=== PATIENT | female | born 1945 | race Caucasian/White ===

== ENCOUNTER 2024-04-30 09:32 | Outpatient (REF) | payer MEDICARE, BC, SELFPAY ==
[2024-04-30 13:33] LABS: Basophils Absolute Auto 0.1 X10*3/uL (0.0-0.2); Basophils Percent Auto 0.3 % (0-2); Eosinophils Absolute Auto 0.1 X10*3/uL (0.0-0.4); Eosinophils Percent Auto 0.3 % (0-4); Hematocrit 40.9 % (37.0-47.0); Hemoglobin 13.4 g/dl (12.0-16.0); Imm Gran Abs Auto 0.07 X10*3/uL (0.00-0.03); Imm Gran Pct Auto 0.5 % (0.0-0.4); Lymphocytes Percent Auto 62.2 % (20-40); MANUAL DIFF FLAG SCAN; Mean Corpuscular HGB Conc 32.8 g/dl (31.0-35.0); Mean Corpuscular Hemoglobin 29.4 pg (27.0-33.0); Mean Corpuscular Volume 89.7 fL (80.0-98.0); Monocytes Absolute Auto 0.8 X10*3/uL (0.1-1.2); Monocytes Percent Auto 5.8 % (2-11); Neutrophils Absolute Auto 4.5 x10*3/uL (2.0-8.3); Neutrophils Percent Auto 30.9 % (45-73); Platelet Count 169 X10*3/uL (160-400); Red Blood Count 4.56 X10*6/uL (4.20-5.50); SCAN SMEAR FLAG 1; White Blood Count 14.4 X10*3/uL (4.8-10.8)
[2024-04-30 13:38] LABS: Alanine Aminotransferase 29 U/L (0-31); Aspartate Amino Transferase 25 U/L (5-31); C Reactive Protein 0.26 mg/dL (< or = 0.50); Estimated Glomerular Filt Rate 46; Uric Acid 7.9 mg/dL (2.4-5.7)
[2024-04-30 14:01] LABS: HBsAGNum1 0.55 S/CO (0.00-0.99); Hepatitis B Surface Antigen Negative (Negative); ~HepC Num1 0.07 S/CO (0.00-0.79); ~Hepatitis B Surface Antibody NONREACTIVE (Nonreactive); ~Hepatitis C Antibody Nonreactive (Nonreactive)
[2024-04-30 14:29] LABS: Erythrocyte Sedimentation Rate 10 MM/HR (0-20)
[2024-04-30 14:39] LABS: SLIDE REVIEW VERIFIED
[2024-05-01 08:41] LABS: HBc Num1 0.07 S/CO (0.00-0.79); Hepatitis B Core Antibody Nonreactive (Nonreactive)
[2024-05-03 10:44] LABS: TS Negative Control Passed; TS Panel A 0; TS Panel B 0; TS Positive Control Passed; TSpotTB Negative (Negative)
== END 2024-04-30 09:33 | disposition home or self-care (01) ==
LOC: HO.HMGCLDS 09:32
PROVIDERS: PCP Physician Assistant; Visit Provider Internal Medicine Rheumatology
DX: M10.9 Gout, unspecified (principal); M19.90 Unspecified osteoarthritis, unspecified site; M20.11 Hallux valgus (acquired), right foot; M20.12 Hallux valgus (acquired), left foot; M25.562 Pain in left knee; G89.29 Other chronic pain
CPT/HCPCS: 36415; 82565; 84450; 84460; 84550; 85025; 85652; 86140; 86481; 86704; 86706; 86803; 87340; 99212

== ENCOUNTER 2024-04-30 09:32 | Outpatient (AMB) | payer MEDICARE, BC, SELFPAY ==
--- NOTE | 2024-04-30 09:47 | MHC.OFFVIS ---
Vital Signs 04/30/24 10:00 Height 5 ft 2 in Weight 157 lb 3.033 oz BMI 28.7 BP 130/60 Blood Pressure Location Lt brachial Position Sitting Respiration 16 Pulse 76 Pulse Source Pulse Oximeter Pulse Oximetry (%) 96 Oxygen Delivery Method Room Air Intake Visit Reasons: Gout Intake Note: Patient presents for Gout. No Gout flare up Allergies Morphine Allergy (Mild, Uncoded 04/30/24 09:52) Vomiting Paxlovid Allergy (Mild, Uncoded 04/30/24 09:52) Diarrhea Medication List - Last Reconciled 04/30/24 by Daniel Enriquez MD acetaminophen (Tylenol Extra Strength) 1,000 mg PO Q6H PRN apixaban (Eliquis) 5 mg PO BID azelastine 2 sprays intranasal ONCE PRN bimatoprost 0.01% (Lumigan) 1 drp ophthalmic (eye) QPM biotin 2,500 mcg PO BID diltiazem HCl ER 240 mg PO DAILY ibrutinib (Imbruvica) 280 mg PO DAILY menthol 4% (Biofreeze (menthol)) 1 appl topical ONCE PRN hzlyhswh-ckplxdg-oelh-lutein tabs PO DAILY prednisone 5 mg PO DIRECTED valsartan 80 mg PO DAILY HPI HPI Gout: Details: She received prednisone course at December visit for treatment of podagra with benefit. She experienced no joint pain or swelling until February. She has had recurrence of hand pain with shooting pain from right thumb radiating to wrists. She is unable to utilize her hands. Unable to make a fist. She has stiffness that is lasting throughout the day. She also experiences pain in her left knee. She has history of meniscus repair in her left knee. No recurrence of podagra. [facility] Family History (Updated 04/30/24 @ 10:00 by BRONSON Fleming) Father CLL (chronic lymphocytic leukemia) Mother CHF (congestive heart failure) Social History (Updated 04/30/24 @ 09:59 by BRONSON Fleming) Household Members: Spouse Housing: House Alcohol intake: current Comment: [facility] Patient Tobacco Use Status: Former Tobacco user Years Smoked: 10 Review of Systems Const All systems reviewed & are unremarkable except as noted in HPI and below Physical Exam Vital Signs: Last Vital Signs Pulse 76 04/30/24 10:00 Resp 16 04/30/24 10:00 BP 130/60 04/30/24 10:00 Pulse Ox 96 04/30/24 10:00 Oxygen Delivery Method Room Air 04/30/24 10:00 BMI result Body Mass Index 28.7 Const Other: General: Comfortable CVS: RRR Respiratory: clear to auscultation bilaterally. Good respiratory effort Skin: No lesions seen MSK: Tender right 1st and 2nd MCP with synovitis present on 2nd MCP. Tender right PIP knees. No wrist tenderness. Tender left 2nd PIP with synovitis present. Synovitis present left 2nd PIP. Unable to tierce filler hands. Shoulder abduction 120 degrees. Good internal external rotation. Left knee synovitis present with tenderness on palpation along joint line. Knee flexion 120 degrees. Bilateral hallux valgus present with tenderness on palpation. No tenderness of the rest of the MTPs. 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 Differential diagnosis includes chronic gout, CPPD disease, seronegative inflammatory arthritis such as spondyloarthropathy (RF/CCP/VETO/ESR/CRP negative 09/2023 [facility] records). Code(s): M19.90 - Unspecified osteoarthritis, unspecified site Category: Medical Plan: I prescribed course of prednisone. Labs ordered. Return to clinic in 1 month (2) Gout: Comment: History of recurrent podagra with an episode in December treated with prednisone course. She had 3 episodes last year. I will obtain uric acid level this visit. Code(s): M10.9 - Gout, unspecified Category: Medical Qualifiers: Chronicity: chronic Gout etiology: idiopathic Gout site: toe Presence of tophus: without tophus Plan: Labs ordered Return to clinic in 1 month (3) Hallux valgus, acquired, bilateral: Comment: Bilateral. We discussed diagnosis, natural course and management. 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 (4) Knee pain, left: Comment: I am concerned she has degenerative osteoarthritis contributing to left knee pain and swelling. Concurrent inflammatory arthritis can also be contributing. Code(s): M25.562 - Pain in left knee Category: Medical Qualifiers: Chronicity: chronic Qualified Code(s): M25.562 - Pain in left knee; G89.29 - Other chronic pain Plan: I prescribed short course of prednisone We will obtain left knee x-ray next visit Return to clinic in 1 month Orders: Orders Alanine Aminotransferase 04/30/24 M10.9 - Gout, unspecified Aspartate Amino Transferase 04/30/24 M10.9 - Gout, unspecified C Reactive Protein 04/30/24 M10.9 - Gout, unspecified Complete Blood Count Auto Diff 04/30/24 M10.9 - Gout, unspecified T Spot TB 04/30/24 M10.9 - Gout, unspecified Hepatitis B,C Profile 04/30/24 M10.9 - Gout, unspecified Erythrocyte Sedimentation Rate 04/30/24 M10.9 - Gout, unspecified Creatinine 04/30/24 M10.9 - Gout, unspecified Uric Acid 04/30/24 M10.9 - Gout, unspecified Medications: New prednisone Take 3 tablets daily 3 days, 2 tablets daily 3 days, 1 tablet daily 3 days 5 mg PO DIRECTED 18 tabs 0RF Coding Level of Care Code Est Pt Level 4 (80750) Complex EM visit Add On G2211 Diagnoses Inflammatory arthritis M19.90 Gout M10.9 Chronicity: chronic Gout etiology: idiopathic Gout site: toe Presence of tophus: without tophus Hallux valgus, acquired, bilateral M20.11; M20.12 Chronic pain of left knee M25.562; G89.29 Chronicity: chronic
[2024-04-30 10:00] VITALS: BP 130/60; PULSE 76; RESP 16; O2SAT 96; BMI 28.7
== END 2024-04-30 10:35 | disposition home or self-care (01) ==
PROVIDERS: PCP Physician Assistant; Visit Provider Internal Medicine Rheumatology
DX: M19.90 Unspecified osteoarthritis, unspecified site (principal); M10.9 Gout, unspecified; M20.11 Hallux valgus (acquired), right foot; M20.12 Hallux valgus (acquired), left foot; M25.562 Pain in left knee; G89.29 Other chronic pain
CPT/HCPCS: 99214; G2211

== ENCOUNTER 2024-06-05 08:34 | Outpatient (AMB) | payer MEDICARE, BC, SELFPAY ==
--- NOTE | 2024-06-05 08:49 | MHC.OFFVIS ---
Vital Signs 06/05/24 08:51 Height 5 ft 2 in Weight 158 lb 8.198 oz BMI 29.0 BP 120/68 Blood Pressure Location Lt brachial Position Sitting Pulse 64 Pulse Source Pulse Oximeter Pulse Oximetry (%) 97 Oxygen Delivery Method Room Air Intake Visit Reasons: Follow up 1mo Intake Note: Patient presents for follow up on gout and lab review. Allergies Morphine Allergy (Mild, Uncoded 06/05/24 08:52) Vomiting Paxlovid Allergy (Mild, Uncoded 06/05/24 08:52) Diarrhea HPI HPI Follow up 1mo: Details: She continues to have pain and swelling in her hands. She has shooting pain from bilateral 2nd MCPs towards palm of her hand. She feels weak. [facility] Family History (Updated 04/30/24 @ 10:00 by BRONSON Fleming) Father CLL (chronic lymphocytic leukemia) Mother CHF (congestive heart failure) Social History (Updated 04/30/24 @ 09:59 by BRONSON Fleming) Household Members: Spouse Housing: House Alcohol intake: current Comment: OCC Patient Tobacco Use Status: Former Tobacco user Years Smoked: 10 Review of Systems Const All systems reviewed & are unremarkable except as noted in HPI and below Physical Exam Vital Signs: Last Vital Signs Pulse 64 06/05/24 08:51 BP 120/68 06/05/24 08:51 Pulse Ox 97 06/05/24 08:51 Oxygen Delivery Method Room Air 06/05/24 08:51 BMI result Body Mass Index 29.0 Const Other: General: Comfortable CVS: RRR Respiratory: clear to auscultation bilaterally. Good respiratory effort Skin: No lesions seen MSK: No tenderness of MCPs. No synovitis of MCPs (improvement). No wrist tenderness. Tender left 2nd PIP with synovitis present. Tender right 3rd to 5th PIPs. 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 Full range of motion of shoulders. Good internal external rotation. Left knee mild synovitis present with tenderness on palpation along joint line. Knee flexion 120 degrees. Bilateral hallux valgus present. No tenderness of the rest of the MTPs. No podagra. Assessment & Plan Assessment & Plan (1) Inflammatory arthritis: Comment: She has developed chronic inflammatory arthritis with history recurrent podagra likely related to chronic gout. She has hyperuricemia. She has had partial response with low-dose prednisone course. I discussed treatment with another course of prednisone with higher dose and longer taper and uric lowering therapy. We also discussed the need for colchicine as prophylaxis initially with goal of uric acid level being less than 6. Patient would like to think about starting a new medication allopurinol and colchicine. Code(s): M19.90 - Unspecified osteoarthritis, unspecified site Category: Medical Plan: I prescribed course of prednisone. Information on allopurinol and colchicine given to patient Return to clinic in 3 month (2) Gout: Comment: History of recurrent podagra with an episode in December treated with prednisone course. She had 3 episodes last year. History of hyperuricemia Code(s): M10.9 - Gout, unspecified Category: Medical Qualifiers: Gout site: toe Gout etiology: idiopathic Chronicity: chronic Presence of tophus: without tophus Laterality: unspecified laterality Qualified Code(s): M1A.0790 - Idiopathic chronic gout, unspecified ankle and foot, without tophus (tophi) Plan: See above Return to clinic in 3 months (3) Knee pain, left: Comment: Synovitis has improved with prednisone course. Likely related to inflammatory arthritis. Code(s): M25.562 - Pain in left knee Category: Medical Qualifiers: Chronicity: chronic Qualified Code(s): M25.562 - Pain in left knee; G89.29 - Other chronic pain Plan: I prescribed another course of prednisone We will obtain left knee x-ray next visit if she has persistent knee pain and swelling Return to clinic in 3 months Medications: Changed From prednisone Take 3 tablets daily 3 days, 2 tablets daily 3 days, 1 tablet daily 3 days 5 mg PO DIRECTED 18 tabs 0RF To prednisone Take 4 tablets daily 5 days, 3 tablets daily 5 days, 2 tablets daily 5 days, 1 tablet daily 5 days. Take prednisone with food. 5 mg PO DIRECTED 50 tabs 0RF Coding Level of Care Code Est Pt Level 4 (22407) Complex EM visit Add On G2211 Diagnoses Inflammatory arthritis M19.90 Chronic idiopathic gout involving toe without tophus, unspecified laterality M1A.0790 Gout site: toe Gout etiology: idiopathic Chronicity: chronic Presence of tophus: without tophus Laterality: unspecified laterality Chronic pain of left knee M25.562; G89.29 Chronicity: chronic
[2024-06-05 08:51] VITALS: BP 120/68; PULSE 64; O2SAT 97; BMI 29.0
== END 2024-06-05 09:39 | disposition home or self-care (01) ==
PROVIDERS: PCP Physician Assistant; Visit Provider Internal Medicine Rheumatology
DX: M19.90 Unspecified osteoarthritis, unspecified site (principal); M1A.0790 Idiopathic chronic gout, unspecified ankle and foot, without tophus (tophi); M25.562 Pain in left knee; G89.29 Other chronic pain
CPT/HCPCS: 99214; G2211

== ENCOUNTER → 2024-06-05 08:34 | Outpatient (BNVA) | payer MEDICARE, BC, SELFPAY | PROVIDERS: PCP Physician Assistant; Visit Provider Internal Medicine Rheumatology | DX: M19.90 Unspecified osteoarthritis, unspecified site (principal); M25.562 Pain in left knee; M1A.0790 Idiopathic chronic gout, unspecified ankle and foot, without tophus (tophi); G89.29 Other chronic pain | CPT/HCPCS: 99212 ==

== ENCOUNTER 2024-09-11 13:43 | Outpatient (AMB) | payer MEDICARE, BC, SELFPAY ==
--- NOTE | 2024-09-11 13:49 | A.OFFVIS_ITS ---
Vital Signs 09/11/24 13:51 Height 5 ft 1 in Weight 154 lb 1.65 oz BMI 29.1 BP 146/70 H Blood Pressure Location Rt brachial Position Sitting Pulse 63 Pulse Source Pulse Oximeter Pulse Oximetry (%) 97 Oxygen Delivery Method Room Air Intake Visit Reasons: Follow Up 3mo Intake Note: Patient present for follow up on vasculitis. Accompanied by: Self / Same As Patient Allergies Morphine Allergy (Mild, Uncoded 06/05/24 08:52) Vomiting Paxlovid Allergy (Mild, Uncoded 06/05/24 08:52) Diarrhea HPI HPI Follow Up 3mo: Details: She was dx with recurrent breast cancer R nipple s/p surgery 04/2025. She had gout attack L podagra August. She went to urgent care who prescribed a prednisone course with resolution of symptoms PFSH Family History Father CLL (chronic lymphocytic leukemia) Mother CHF (congestive heart failure) Social History Household Members: Spouse Housing: House Alcohol intake: current Comment: OCC Patient Tobacco Use Status: Former Tobacco user Years Smoked: 10 Review of Systems Const All systems reviewed & are unremarkable except as noted in HPI and below Physical Exam Vital Signs: Last Vital Signs Pulse 63 09/11/24 13:51 BP 146/70 H 09/11/24 13:51 Pulse Ox 97 09/11/24 13:51 Oxygen Delivery Method Room Air 09/11/24 13:51 BMI result Body Mass Index 29.1 Const Other: General: Comfortable CVS: RRR Respiratory: clear to auscultation bilaterally. Good respiratory effort Skin: No lesions seen MSK: No tenderness of MCPs, PIPs, DIPJ knees and wrists. 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 Full range of motion of shoulders. Good internal external rotation. No tenderness of knees. Knee flexion 120 degrees. Bilateral hallux valgus present. No tenderness of the rest of the MTPs. No podagra. Assessment & Plan Assessment & Plan (1) Gout: Comment: She had another episode of left podagra treated with prednisone course by urgent care in [place]. We discussed next steps with uric lowering therapy. Medical Technologist Prn Dr. Chilel told patient that there is a contraindication to colchicine use with ibrutinib for CLL treatment. Contraindication to NSAID use for prophylaxis due to concurrent use of Eliquis. If she has recurrent gout flare, I will treat with prednisone course then have her continue low-dose prednisone for prophylaxis while she is on uric lowering therapy with allopurinol. Patient agrees with plan. Uric acid goal less than 6. Rheumatoid history: Recurrent podagra with an episode in December treated with prednisone course. She had 3 episodes last year. History of hyperuricemia. Code(s): M10.9 - Gout, unspecified Category: Medical Qualifiers: Chronicity: chronic Gout etiology: idiopathic Gout site: toe Laterality: unspecified laterality Presence of tophus: without tophus Qualified Code(s): M1A.0790 - Idiopathic chronic gout, unspecified ankle and foot, without tophus (tophi) Plan: Labs prior to starting allopurinol ordered. After lab results are back and are okay, I will start allopurinol 100 mg daily She will check uric acid level 1 month after starting allopurinol Return to clinic in 3 months (2) Hyperuricemia: Code(s): E79.0 - Hyperuricemia without signs of inflammatory arthritis and tophaceous disease Category: Medical Plan: See above Orders: Orders Aspartate Amino Transferase Today M1A.0790 - Idiopathic chronic gout, unspecified ankle and foot, without tophus (tophi) Creatinine Today M1A.0790 - Idiopathic chronic gout, unspecified ankle and navid t, without tophus (tophi) Uric Acid 1 Month M1A.0790 - Idiopathic chronic gout, unspecified ankle and foot, without tophus (tophi) Alanine Aminotransferase Today M1A.0790 - Idiopathic chronic gout, unspecified ankle and foot, without tophus (tophi) Erythrocyte Sedimentation Rate Today Z79.899 - Other fdc (current) drug therapy C Reactive Protein Today Z79.899 - Other equipment operator intermodal yard (current) drug therapy Uric Acid Today M1A.0790 - Idiopathic chronic gout, unspecified ankle and foot, without tophus (tophi) Coding Level of Care Code Est Pt Level 4 (30513) Complex EM visit Add On G2211 Diagnoses Chronic idiopathic gout involving toe without tophus, unspecified laterality M1A.0790 Chronicity: chronic Gout etiology: idiopathic Gout site: toe Laterality: unspecified laterality Presence of tophus: without tophus Hyperuricemia E79.0
[2024-09-11 13:51] VITALS: BP 146/70; PULSE 63; O2SAT 97; BMI 29.1
--- OUTSIDE RECORDS SUMMARY | 2024-09-11 16:35 | XMS_ITS | Patient Health Record ---
Author Organization [facility] Address [address], [place] [id number] Care Team Providers Care Waistline Joiner Name Role Phone Lani Waddell Unavailable [phone] Allergies No Known Allergies Reason For Referral No Information Medications Medication SIG (Take, Route, Frequency, Duration) Notes Start Date End Date Status Simbrinza 1-0.2 % INSTILL 1 DROP INTO BOTH EYES TWICE DAILY Ophthalmic for 90 Days Active Eliquis 5 MG TAKE 1 TABLET TWICE A DAY Oral for 90 Days Active Azelastine HCl 0.1 % USE 2 SPRAYS IN EAC H NOSTRIL TWICE DAILY Nasal for 75 Days Active Lumigan 0.01 % Ophthalmic for 90 Days Active dilTIAZem HCl ER Coated Beads 240 MG Oral for 90 Days Active Valsartan 80 MG Oral for 90 Days Active Imbruvica 280 MG Oral for 28 Days Active Problems Problem Type SNOMED Code ICD Code Onset Dates Problem Status W/U Status Risk Notes Problem Gouty arthritis (19457501) Gouty arthritis (M10.9) Active confirmed Vital Signs Heart Rate 75 /min 08/10/2024 Temperature 98.1 degrees Fahrenheit 08/10/2024 Respiratory Rate 16 /min 08/10/2024 Oximetry 97 % 08/10/2024 Blood pressure diastolic 70 mm Hg 08/10/2024 Weight-kg 71.03 kg 08/10/2024 Height 61 in 08/10/2024 Blood pressure systolic 130 mm Hg 08/10/2024 Weight 156.6 lbs 08/10/2024 BMI 29.59 kg/m2 08/10/2024 Encounters Encounter Location Date Provider Diagnosis [facility], [facility] [address] [place], [place] [id number] 08/10/2024 Lani Waddell Gouty arthritis M10.9 and Foot pain, left M79.672 Assessments Encounter Date Diagnosis (ICD Code) Assessment Notes Treatment Notes Treatment Clinical Notes Section Notes 08/10/2024 Foot pain, left (ICD-10 - M79.672) 08/10/2024 Gouty arthritis (ICD-10 - M10.9) Gout is a form of arthritis caused by a buildup of uric acid crystals in a joint. It causes sudden attacks of pain, swelling, redness, and stiffness, usually in one joint, especially the big toe. Gout usually comes on without a cause. But it can be brought on by drinking alcohol (especially beer), eating or drinking things made with high-fructose corn syrup, or eating seafood or red meat. Taking certain medicines, such as diuretics, can also trigger an attack of gout. Taking your medicines as prescribed and following up with your doctor regularly can help you avoid gout attacks in the future. Follow-up care is a arechiga part of your treatment and safety. Be sure to make and go to all appointments, and call your doctor if you are having problems. It's also a good idea to know your test results and keep a list of the medicines you take. How can you care for yourself at home? If the joint is swollen, put ice or a cold pack on the area for 10 to 20 minutes at a time. Put a thin cloth between the ice and your skin. Prop up the sore limb on a pillow when you ice it or anytime you sit or lie down during the next 3 days. Try to keep it above the level of your heart. This can help reduce swelling. Rest sore joints. Avoid activities that put weight or strain on the joints for a few days. Take short rest breaks from your regular activities during the day. Take your medicines exactly as prescribed. Call your doctor if you think you are having a problem with your medicine. Take pain medicines exactly as directed. If the doctor gave you a prescription medicine for pain, take it as prescribed. If you are not taking a prescription pain medicine, ask your doctor if you can take an [id number] medicine. Eat less seafood and red meat. Avoid foods or drinks that are made with high-fructose corn syrup. Check with your doctor before drinking alcohol. Losing weight, if you are overweight, may help reduce attacks of gout. But do not go on a diet that causes rapid weight loss. Losing a lot of weight in a short amount of time can cause a gout attack. When should you call for help? Call your doctor now or seek immediate medical care if: You have a fever. The joint is so painful you cannot use it. You have sudden, unexplained swelling, redness, warmth, or severe pain in one or more joints. Watch closely for changes in your health, and be sure to contact your doctor if: You have joint pain. Your symptoms get worse or are not improving after 2 or 3 days. Plan Of Treatment No Information Insurance Providers Payer Name Payer Address Payer Phone Subscriber Number Group Number Insured Name Patient Relationship to Insured Coverage Start Date Coverage End Date Medicare [address] [address] [place] [address] [id number] OCTOBER, DIAN Self - patient is the insured [facility] Commercial [address] [place] [address] [id number] OCTOBER, DIAN Self - patient is the insured Medical (General) History Medical History History ICD Code Gout
--- OUTSIDE RECORDS SUMMARY | 2024-09-11 16:35 | XMS_ITS ---
Author Organization [facility] Address [address] [place] [id number] Care Team Providers Care Chart Clerk Name Role Phone Lani Waddell Unavailable [phone] Allergies No Known Allergies REASON FOR VISIT POSS GOUT ON FOOT Medications Medication SIG (Take, Route, Frequency, Duration) Notes Start Date End Date Status predniSONE 10 MG Take 4 tablets days 1-2, 3 tablets days 3-4, two tablets days 5-6 one tablet days 7-8 Orally Once a day in the morning with food for 8 days 08/10/2024 08/18/2024 Active Azelastine HCl 0.1 % USE 2 SPRAYS IN EAC H NOSTRIL TWICE DAILY Nasal for 75 Days Active Lumigan 0.01 % Ophthalmic for 90 Days Active dilTIAZem HCl ER Coated Beads 240 MG Oral for 90 Days Active Imbruvica 280 MG Oral for 28 Days Active Simbrinza 1-0.2 % INSTILL 1 DROP INTO BOTH EYES TWICE DAILY Ophthalmic for 90 Days Active Eliquis 5 MG TAKE 1 TABLET TWICE A DAY Oral for 90 Days Active Valsartan 80 MG Oral for 90 Days Active Problems Problem Type SNOMED Code ICD Code Onset Dates Problem Status W/U Status Risk Notes Problem Gouty arthritis (20875486) Gouty arthritis (M10.9) Active confirmed Vital Signs Blood pressure systolic 130 mm Hg 08/11/19 25 Blood pressure diastolic 70 mm Hg 025 Heart Rate 75 /min 08/10/2024 Oximetry 97 % 08/10/2024 Temperature 98.1 degrees Fahrenheit 08/11/19 25 Height 61 in 08/10/2024 Weight 156.6 lbs 08/10/2024 BMI 29.59 kg/m2 08/10/2024 Respiratory Rate 16 /min 08/10/2024 Weight-kg 71.03 kg 08/10/2024 Encounters Encounter Location Date Provider Diagnosis [facility], [facility] [address] [place], [place] [phone] 08/10/2024 Lani Waddell Gouty arthritis M10.9 and Foot pain, left M79.672 Assessments Encounter Date Diagnosis (ICD Code) Assessment Notes Treatment Notes Treatment Clinical Notes Section Notes 08/10/2024 Gouty arthritis (ICD-10 - M10.9) Gout [...] your doctor if you can take an rsre-uft-mjiwuvo medicine. Eat less seafood and red meat. [...] not improving after 2 or 3 days. 08/10/2024 Foot pain, left (ICD-10 - M79.672) Plan Of Treatment Medication Medication Name Sig Start Date Stop Date Notes predniSONE 10 MG Take 4 tablets days 1-2, 3 tablets days 3-4, two tablets days 5-6 one tablet days 7-8 Orally Once a day in the morning with food for 8 days 08/10/2024 08/18/2024 Treatment Notes Assessment Notes Gouty arthritis Gout is a form of arthritis caused [...] your doctor if you can take an sdpt-sct-mliepqi medicine. Eat less seafood and red meat. [...] not improving after 2 or 3 days. Next Appt Details Follow Up: ironn, Reason: Progress Notes * PAULINE YORKADOB:1945 (79 yo F)Acc No.[id number]:08/10/2024 Progress Note Patient:DIAN PISANO Provider:?Lani Waddell APRN :1945???Age:79 Y???Sex:Female D ate:08/10/2024 Address:[address] [place], [place] [address], [id number] Subjective: * Chief Complaints: * ???1. POSS GOUT ON FOOT. * HPI: ???History of Present Illness:? patient state left foot and toes with pain and swelling and redness with warmth, radiates to the ankle, was walking a lot at [place], hx of gout and feels as though she is having a flair up, pain with ambulation. * ROS:?All Other Systems:?Review of Systems (ROS)?See HPI for details,All others negative except those mentioned in HPI.? * Medical History:?Gout. * Medications:?Taking Imbruvic a 280 MG Tablet Oral , Taking dilTIAZem HCl ER Coated Beads 240 MG Capsule Extended Release 24 Hour Oral , Taking Lumigan 0.01 % Solution Ophthalmic , Taking Valsartan 80 MG Tablet Oral , Taking Eliquis 5 MG Tablet TAKE 1 TABLET TWICE A DAY Oral , Taking Simbrinza 1-0.2 % Suspension INSTILL 1 DROP INTO BOTH EYES TWICE DAILY Ophthalmic , Taking Azelastine HCl 0.1 % Solution USE 2 SPRAYS IN EACH NOSTRIL TWICE DAILY Nasal * Allergies:?N.K.D.A. Objective: * Vitals:?Staff: EMIGDIO, BP: 130/7 0 mm Hg, HR: 75 /min, Oxygen sat %: 97 %, Temp: 98.1 F, Ht: 61 in, Wt: 156.6 lbs, BMI: 29.59 Index, RR: 16 /min, Wt-k.03 kg. * Examination: ???General Examination: ?GENERAL APPEARANCE?pleasant, well nourished, in no acute distress.?EYES?extraocular movement intact (EOMI).?SKIN?warm and dry, no rashes.?MUSCULOSKELETAL:?left foot swelling at 1st -3rd toes and dorsal aspect of foot as well as left medial ankle,? warmth and pain with palpation and ROM,.?NEUROLOGIC:?alert and oriented, cognitive exam grossly normal, cooperative with exam.?PSYCH:?cooperative with exam, cognitive function intact, good eye contact, judgement and insight good.? Assessment: * Assessment: 1.?Gouty arthritis - M10.9 ( Primary)???2.?Foot pain, left - M79.672??? Plan: * Treatment: * Follow Up:?prn * * Sign off status: Completed true * Provider:?Lani Waddell APRN Date:?02/2025 Generated for Zander beck/Madison/Amaris on:?09/11/2024 04:34 PM EDT History and Physical Notes * HPI (History of Present Illness) Category Sub-Category Detail Notes Category Not es History of Present Illness patient state left f oot and toes with pain and swelling and redness with warmth, radiates to the ankle, was walking a lot at [place], hx of gout and feels as though she is having a flair up, pain with ambulation Examination Category Sub-Category Detail Notes Category Not es General Examination GENERAL APPEARANCE pleasant, well nourished, in no acute distress EYES extraocular movement intact (EOMI) NEUROLOGIC: alert and oriented, cognitive exam grossly normal, cooperative with exam SKIN warm and dry, no terrance hes MUSCULOSKELETAL: left foot swelling a t 1st -3rd toes and dorsal aspect of foot as well as left medial ankle, warmth and pain with palpation and ROM, PSYCH: cooperative with exa m, cognitive function intact, good eye contact, judgement and insight good
== END 2024-09-11 14:31 | disposition home or self-care (01) ==
LOC: HO.RHES 13:44
PROVIDERS: PCP Physician Assistant; Visit Provider Internal Medicine Rheumatology
DX: M1A.0790 Idiopathic chronic gout, unspecified ankle and foot, without tophus (tophi) (principal); E79.0 Hyperuricemia without signs of inflammatory arthritis and tophaceous disease
CPT/HCPCS: 99214; G2211

== ENCOUNTER 2024-09-11 13:43 | Outpatient (REF) | payer MEDICARE, BC, SELFPAY ==
[2024-09-11 18:07] LABS: Alanine Aminotransferase 53 U/L (0-31); Aspartate Amino Transferase 25 U/L (5-31); C Reactive Protein 0.19 mg/dL (< or = 0.50); Estimated Glomerular Filt Rate 46; Uric Acid 7.7 mg/dL (2.4-5.7)
[2024-09-11 18:48] LABS: Erythrocyte Sedimentation Rate 9 MM/HR (0-20)
== END 2024-09-11 13:44 | disposition home or self-care (01) ==
LOC: HO.HKASLDS 13:43
PROVIDERS: PCP Physician Assistant; Visit Provider Internal Medicine Rheumatology
DX: M1A.0790 Idiopathic chronic gout, unspecified ankle and foot, without tophus (tophi) (principal); Z79.899 Other long term (current) drug therapy
CPT/HCPCS: 36415; 82565; 84450; 84460; 84550; 85652; 86140; 99212

== ENCOUNTER 2025-05-07 11:53 | Outpatient (REF) | payer MEDICARE, BC, SELFPAY ==
--- OUTSIDE RECORDS SUMMARY | 2025-05-07 16:01 | XMS_ITS ---
Author Name [facility] Organization Unknown Encounters Encounter Type Encounter Reason Primary Diagnosis Location Date Ambulatory [facility] 11/14/2024 Ambulatory [facility] 11/14/2024
--- OUTSIDE RECORDS SUMMARY | 2025-05-07 16:01 | XMS_ITS | Clinical Summary ---
Author Organization [facility] Address [address] [place] [address] Phone Care Team Providers Care Fork Lift Technician Name Role Phone Hu Peterson Primary Care Provider [phone] Allergies Active Allergy Reactions Criticality Noted Date Comments Morphine 02/13/2025 Medications allopurinoL (ZYLOPRIM) 100 mg tablet Take 1 tablet (100 mg total) by mouth 1 (one) time each day. 11/21/19 25 Active amLODIPine-atorv astatin (CADUET) 2.5-10 mg per tablet Take 1 tablet by mouth 1 (one) time each day. Active Eliquis 5 mg tablet TAKE 1 TABLET DAILY (CORRECT DOSE PER DOCTOR) 11/28/19 25 Active betamethasone dipropionate 0.05 % lotion APPLY TO SCALP TWICE DAILY NEEDED FLARES DECREASE SYMPTOMS IMPROVE 09/25/19 25 Active Lumigan 0.01 % ophthalmic drops Administer 1 drop into both eyes. at bedtime Active Simbrinza 1-0.2 % ophthalmic suspension Administer 1 drop into both eyes 2 (two) times a day. 03/18/20 24 Active dilTIAZem CD (CARDIZEM CD) 240 mg 24 hr capsule 02/11/20 25 Active fluocinolone and shower cap 0.01 % oil 11/05/19 25 Active Imbruvica 280 mg tablet Take by mouth 1 (one) time each day Active methylPREDNISolo ne (MEDROL DOSPAK) 4 mg tablet See administration instructions. 11/20/19 25 Active sulfamethoxazole -trimethoprim (BACTRIM DS,SEPTRA DS) 800-160 mg per tablet Take 1 tablet by mouth 2 (two) times a day. for 10 days Active tamoxifen (NOLVADEX) 20 mg chemo tablet Take 1 tablet (20 mg total) by mouth 1 (one) time each day 09/12/19 Active triamterene-hydr oCHLOROthiazide (MAXZIDE-25) 37.5-25 mg per tablet Take 1 tablet by mouth 1 (one) time each day. Active valsartan (DIOVAN) 80 mg tablet Take 1 tablet (80 mg total) by mouth 1 (one) time each day. 11/27/19 Active Active Problems Problem Noted Date Diagnosed Date Arthritis of both hands 02/24/2025 Encounters Date Type Department Care Team Description 04/14/2025 11:00 AM EST Treatment [facility] Occupational Therapy [address] [place] [phone] Ashley Luong OT Arthritis of both hands (Primary Dx) 04/01/2025 1:15 PM EDT Treatment [facility] Occupational [address] [phone] Ashley Luong OT Arthritis of both hands (Primary Dx) 03/18/2025 10:30 AM EDT Treatment [facility] Occupational [address] [phone] Ashley Luong OT Arthritis of both hands (Primary Dx) 02/24/2025 9:30 AM EDT Evaluation [facility] Occupational Therapy [address] [place] [phone] Ashley Luong OT Arthritis of both hands 02/24/2025 Plan of Care Documentation [facility] Occupational Therapy [address] [place] [phone] 02/13/2025 9:30 AM EDT Office Visit Orthopedic Surgery [address] [place] [phone] Lexie Carlson PA Arthritis of both hands (Primary Dx); Bilateral hand pain; Trigger thumb of left hand from Last 3 Months Surgical History Surgery Date Site/Laterality Comments APPENDECTOMY PROCEDURE: NM APPENDECTOMY HYSTERECTOMY PROCEDURE: HISTORICAL HYSTERECTOMY OOPHORECTOMY 1988 PROCEDURE: HISTORICAL OOPHORECTOMY CHOLECYSTECTOMY 1989 PROCEDURE: NM CHOLECYSTECTOMY Medical History Medical History Date Comments CLL (chronic lymphocytic vanita kemia) ([facility] V24, [facility] V28) DX:CLL (chronic lymphocytic leukemia) ([facility]) Hyperlipidemia DX:Hyperlipidemi a Social History Tobacco Use Types Packs/Day Years Used Date Smoking Tobacco: Never Assessed Comments Unknown Sex and Gender Information Value Date Recorded Sex Assigned at Not on file Legal Sex Female 11:49 PM EST Gender Identity Not on file Sexual Orientation Not on file Obstetrics History Plan of Treatment Health Maintenance Due Date Last Done Comments DTaP,Tdap,and Td Vaccines (1 - Tdap) 1964 Pneumococcal Vaccine: 50+ Years (1 of 2 - PCV) 1964 Zoster Vaccines (1 of 2) 1964 RSV Immunization Adult Patients (1 - 1-dose 75+ series) 2020 Cholesterol Screening (Lipid Panel) 05/07/2022 Falls Risk Assessment 05/07/2022 Medicare Annual Wellness Visit 05/07/2022 Osteoporosis Screening (Bone Density Screening) 05/07/2022 Social Influencers of Health Screening 05/07/2022 Depression Screening 06/04/2024 COVID-19 Vaccine ( season) 2025 05/01/2021, 07/24/2020, 07/03/2020 Influenza Vaccine (#1) 2025 , 03/03/2023, 03/30/2022, Additional history exists Hypertension/CHF/CAD Annual BMP Blood Test 03/18/2025 HIB Vaccines Aged Out No longer eligi ble based on patient's age to complete this topic HPV Vaccines Aged Out No longer eligi ble based on patient's age to complete this topic Hepatitis A Vaccines Aged Out No long er eligible based on patient's age to complete this topic Hepatitis B Vaccines Aged Out No long er eligible based on patient's age to complete this topic IPV Vaccines Aged Out No longer eligi ble based on patient's age to complete this topic MMR Vaccines Aged Out No longer eligi ble based on patient's age to complete this topic Meningococcal ACWY Vaccine Aged Out N o longer eligible based on patient's age to complete this topic Meningococcal B Vaccine Aged Out No l onger eligible based on patient's age to complete this topic RSV Immunization Patients Under 20 months Aged Out No longer eligible based on patient's age to complete this topic Varicella Vaccines Aged Out No longer eligible based on patient's age to complete this topic Procedures Procedure Name Priority Date/Time Associated Diagnosis Comments XR HAND 3+ VIEWS BILAT Routine 02/13/2025 9:49 AM EDT Pain from Last 3 Months Results * XR Hand 3+ Views bilat (02/13/2025 9:49 AM EDT) Anatomical Region Laterality Modality Upper Extremities, Hand Bilateral Computed Radiography Narrative 02/13/2025 10:03 AM EDT Date of Visit: 02/13/2025 Reason for visit: Bilateral hand pain Views: AP, lateral, oblique bilateral hands Comparison: None Findings: Moderate bilateral thumb basal joint arthritis. Diffuse periarticular osteopenia and diffuse moderate to severe arthritic changes at PIP and DIP joints of all fingers. No fracture dislocation or lytic lesions. Impression: Diffuse osteoarthritis bilateral hands us Lexie BERGERON IMG XR PROCEDURES Final Resul t from Last 3 Months Insurance MEDICARE [facility] Care Teams Fork Lift Technician Relationship Specialty Start Date End Date Hu Peterson PA [address] [place] [phone] PCP - General Internal Medicine 01/08/25
--- OUTSIDE RECORDS SUMMARY | 2025-05-07 16:01 | XMS_ITS | Patient Health Record ---
Author Organization [facility] Address [address] [place], [place] [phone] Care Team Providers Care Civil Cad Tech Name Role Phone Lani Waddell Unavailable [phone] Allergies No Known Allergies Reason For Referral No Information Medications Medication SIG (Take, Route, Frequency, Duration) Notes Start Date End Date Status Simbrinza 1-0.2 % Suspension INSTILL 1 DROP INTO BOTH EYES TWICE DAILY Ophthalmic; Duration: 90 Days Active Eliquis 5 MG Tablet TAKE 1 TABLET TWICE A DAY Oral; Duration: 90 Days Active Azelastine HCl 0.1 % Solution USE 2 SPRAYS IN EACH NOSTRIL TWICE DAILY Nasal; Duration: 75 Days Active Lumigan 0.01 % Solution Ophthalmic; Dura tion: 90 Days Active dilTIAZem HCl ER Coated Beads 240 MG Capsule Extended Release 24 Hour Oral; Duration: 90 Days Active Valsartan 80 MG Tablet Oral; Duration: 90 Days Active Imbruvica 280 MG Tablet Oral; Duration: 28 Days Active Problems Problem Type SNOMED Code ICD Code Onset Dates Problem Status W/U Status Risk Notes Problem Gouty arthritis (65611936) Gouty arthritis (M10.9) Active confirmed Vital Signs [...] Date Provider Diagnosis [facility] [address] [place], [place] [phone] 08/10/2024 Lani Waddell Gouty arthritis M10.9 and [...] your doctor if you can take an kiuq-zxu-rtufxtd medicine. Eat less seafood and red meat. [...] Date Coverage End Date Medicare [address] [address] [place] [address] [id number] OCTOBER DIAN Self - patient is the insured [facility] Commercial [address] [place] [address] [phone] [id number] CHELA DIAN Self - patient is the insured Medical (General) History Medical History History ICD Code Gout
[2025-05-07 18:18] LABS: Uric Acid 6.8 mg/dL (2.4-5.7)
== END 2025-05-07 11:54 | disposition home or self-care (01) ==
LOC: HO.HKASLDS 11:53
PROVIDERS: PCP Physician Assistant Medical; Visit Provider Internal Medicine Rheumatology
DX: E79.0 Hyperuricemia without signs of inflammatory arthritis and tophaceous disease (principal); R74.01 Elevation of levels of liver transaminase levels
CPT/HCPCS: 36415; 84550

== ENCOUNTER 2025-05-21 12:32 | Outpatient (REF) | payer MEDICARE, BC, SELFPAY ==
[2025-05-21 18:04] LABS: Hematocrit 38.6 % (37.0-47.0); Hemoglobin 12.8 g/dl (12.0-16.0); Imm Gran Abs Auto 0.04 X10*3/uL (0.00-0.03); Imm Gran Pct Auto 0.2 % (0.0-0.4); MANUAL DIFF FLAG SCAN; Mean Corpuscular HGB Conc 33.2 g/dl (31.0-35.0); Mean Corpuscular Hemoglobin 29.7 pg (27.0-33.0); Mean Corpuscular Volume 89.6 fL (80.0-98.0); NRBC Abs Auto 0.000 X10*3/uL (0.0-0.012); NRBC Pct Auto 0.0 /100WBC (0.0-0.2); Platelet Count 162 X10*3/uL (160-400); Red Blood Count 4.31 X10*6/uL (4.20-5.50); SCAN SMEAR FLAG 1; White Blood Count 17.3 X10*3/uL (4.8-10.8)
[2025-05-21 18:07] LABS: Lymphocytes Absolute Auto 11.7 X10*3/uL (1.2-4.9)
[2025-05-21 18:32] LABS: Alanine Aminotransferase 19 U/L (0-31); Aspartate Amino Transferase 25 U/L (5-31); Estimated Glomerular Filt Rate 36
[2025-05-22 08:04] LABS: HBS Num1 0.00 mIU/mL (0-7.99); HBc Num1 0.09 S/CO (0.00-0.79); HBsAGNum1 0.43 S/CO (0.00-0.99); Hepatitis B Surface Antigen Negative (Negative); ~HepC Num1 0.05 S/CO (0.00-0.79); ~Hepatitis B Surface Antibody NONREACTIVE (Nonreactive); ~Hepatitis C Antibody Nonreactive (Nonreactive)
== END 2025-05-21 12:33 | disposition home or self-care (01) ==
LOC: HO.HKASLDS 12:32
PROVIDERS: PCP Physician Assistant Medical; Visit Provider Internal Medicine Rheumatology
DX: M1A.0790 Idiopathic chronic gout, unspecified ankle and foot, without tophus (tophi) (principal); M19.90 Unspecified osteoarthritis, unspecified site; Z79.60 Long term (current) use of unspecified immunomodulators and immunosuppressants; Z79.899 Other long term (current) drug therapy
CPT/HCPCS: 36415; 82565; 82955; 84450; 84460; 85025; 85652; 86140; 86200; 86431; 86481; 86704; 86706; 86803; 87340

== ENCOUNTER 2025-05-21 12:32 | Outpatient (AMB) | payer MEDICARE, BC, SELFPAY ==
[2025-05-21 12:34] VITALS: BP 110/50; PULSE 67; O2SAT 97; BMI 29.4
--- NOTE | 2025-05-21 12:34 | MHC.OFFVIS ---
Vital Signs 05/21/25 12:34 Height 5 ft 1 in Weight 155 lb 10.342 oz BMI 29.4 BP 110/50 L Blood Pressure Location Rt brachial Position Sitting Pulse 67 Pulse Source Pulse Oximeter Pulse Oximetry (%) 97 Oxygen Delivery Method Room Air Intake Visit Reasons: follow up Intake Note: PAtient presents today for a follow up visit. Accompanied by: Self / Same As Patient Allergies Morphine Allergy (Mild, Uncoded 06/05/24 08:52) Vomiting Paxlovid Allergy (Mild, Uncoded 06/05/24 08:52) Diarrhea HPI HPI follow up: Details: Swelling in her hand started in March. Progressively getting worse. She is having difficulty using her hands including opening jars. Tylenol is ineffective. This is a 2nd episode that she has had in at least a year of hand swelling. No new podagra. She is tolerating higher dose of allopurinol that was recently started. Right 3rd trigger finger has been active today. She has history of CLL and recurrent breast cancer x2 after diagnosis of CLL. She was treated with radiation for breast cancer. She did not tolerate an oral medication for breast cancer ? Tamoxifen. She had a mammogram recently, which was normal. She is currently on imbruvica for treatment of CLL. [facility] Family History Father CLL (chronic lymphocytic leukemia) Mother CHF (congestive heart failure) Social History Household Members: Spouse Housing: House Alcohol intake: current Comment: [facility] Patient Tobacco Use Status: Former Tobacco user Years Smoked: 10 Physical Exam Exam Exam: General: Comfortable CVS: RRR Respiratory: clear to auscultation bilaterally. Good respiratory effort Skin: No lesions seen MSK: Tender to palpate bilateral MCPs. She has synovitis of bilateral MCPs and left 2nd PIP. Left wrist tendonitis with synovitis present. She is unable to make a full fist with her right hand. Normal range of motion of elbows and shoulders. Unable to fully externally rotate hips. Knee flexion 90 degrees. She has tenderness of left ankle. No MTP tenderness. Vital Signs: Last Vital Signs Pulse 67 05/21/25 12:34 BP 110/50 L 05/21/25 12:34 Pulse Ox 97 05/21/25 12:34 Oxygen Delivery Method Room Air 05/21/25 12:34 BMI result Body Mass Index 29.4 Assessment & Plan Assessment & Plan (1) Inflammatory arthritis: Comment: She has developed chronic inflammatory arthritis. Recurrent episode with initial episode in April 2024 treated with prednisone course. Her clinical exam is consistent with rheumatoid arthritis. She has complicated medical history with CLL on ibrutinib and recurrent breast cancer (in remission). DMARD therapy is indicated. Can consider hydroxychloroquine. Discussed side effects, benefits and drug monitoring on hydroxychloroquine. Code(s): M19.90 - Unspecified osteoarthritis, unspecified site Category: Medical Plan: Workup has been ordered including labs and x-rays for evaluation of chronic inflammatory arthritis X-ray hands and feet ordered Prednisone course prescribed Patient will reach out to her oncologist about hydroxychloroquine Return to clinic in June 2025 to review results (2) Gout: Comment: Her uric acid is not at goal (<6.0). She has increase allopurinol to 200 mg daily recently. She is tolerating higher dose of allopurinol. Rheumatoid history: Recurrent podagra with an episode in December treated with prednisone course. She had 3 episodes 2023. History of hyperuricemia. Code(s): M10.9 - Gout, unspecified Category: Medical Qualifiers: Chronicity: chronic Gout etiology: idiopathic Gout site: toe Laterality: unspecified laterality Presence of tophus: without tophus Qualified Code(s): M1A.0790 - Idiopathic chronic gout, unspecified ankle and foot, without tophus (tophi) Plan: Continue allopurinol 200 mg daily Return to clinic in December 2025 (3) Hyperuricemia: Code(s): E79.0 - Hyperuricemia without signs of inflammatory arthritis and tophaceous disease Category: Medical Plan: See above Orders: Orders Erythrocyte Sedimentation Rate Today M19.90 - Unspecified osteoarthritis, unspecified site, Z79.899 - Other rodent exterminator (current) drug therapy C Reactive Protein Today M19.90 - Unspecified osteoarthritis, unspecified site, Z79.899 - Other intermediate (current) drug therapy Creatinine Today M19.90 - Unspecified osteoarthritis, unspecified site Complete Blood Count Auto Diff Today M19.90 - Unspecified osteoarthritis, unspecified site Hepatitis B,C Profile Today M19.90 - Unspecified osteoarthritis, unspecified site T Spot TB Today - Unspecified osteoarthritis, unspecified site XR Hand Bilat min 3v Today - Unspecified osteoarthritis, unspecified site XR Foot Pj 3V Today - Unspecified osteoarthritis, unspecified site Aspartate Amino Transferase Today - Unspecified osteoarthritis, unspecified site Alanine Aminotransferase Today - Unspecified osteoarthritis, unspecified site Cyclic Citrullinated Peptide Today - Unspecified osteoarthritis, unspecified site Rheumatoid Factor Today - Unspecified osteoarthritis, unspecified site Nmqhugo-5-Fuwuqqatm Dehydrogen Today - Unspecified osteoarthritis, unspecified site Medications: New prednisone Take 4 tablet daily 3 days, 3 tablets daily 3 days, 2 tablets daily 3 days, 1 tablet daily 3 days then stop. Take prednisone with food. 5 mg PO DIRECTED 30 tabs 0RF Coding Level of Care Code Est Pt Level 4 (38547) Add On Problem Visit Only Diagnoses Inflammatory arthritis Chronic idiopathic gout involving toe without tophus, unspecified laterality M1A.0790 Chronicity: chronic Gout etiology: idiopathic Gout site: toe Laterality: unspecified laterality Presence of tophus: without tophus Hyperuricemia E79.0
--- OUTSIDE RECORDS SUMMARY | 2025-05-21 16:20 | XMS_ITS | Clinical Summary ---
Author Organization [facility] Address [address] [place] [address] Phone Care Team Providers Care Sales Driver Name Role Phone Hu Peterson Primary Care Provider [phone] Allergies Active Allergy Reactions Criticality Noted Date [...] Team Description 04/14/2025 11:00 AM EST Treatment [facility] [address] [place] [phone] Ashley Luong OT Arthritis of both hands (Primary Dx) 04/01/2025 1:15 PM EDT Treatment [facility] [address] [place] [phone] Ashley Luong OT Arthritis of both hands (Primary Dx) 03/18/2025 10:30 AM EDT Treatment [facility] [address] [place] [phone] Ashley Luong OT Arthritis of both hands (Primary Dx) 02/24/2025 9:30 AM EDT Evaluation [facility] [address] [place] [phone] Ashley Luong OT Arthritis of both hands 02/24/2025 Plan of Care Documentation [facility] [address] [place] [phone] from Last 3 Months Surgical History Surgery Date Site/Laterality Comments APPENDECTOMY PROCEDURE: [place] APPENDECTOMY HYSTERECTOMY PROCEDURE: HISTORICAL HYSTERECTOMY OOPHORECTOMY 1988 PROCEDURE: HISTORICAL OOPHORECTOMY CHOLECYSTECTOMY 1989 PROCEDURE: MA CHOLECYSTECTOMY Medical History Medical History Date Comments CLL (chronic lymphocytic vanita kemia) ([facility]/HCC V24, CMS/HCC V28) DX:CLL (chronic lymphocytic leukemia) ([facility]) Hyperlipidemia DX:Hyperlipidemi a Social History Tobacco Use Types Packs/Day Years Used Date Smoking Tobacco: Never Assessed Comments Unknown Sex and Gender Information Value Date Recorded Sex Assigned at Not on file Legal Sex Female 11:49 PM EST Gender Identity Not on file Sexual Orientation Not on file Plan of Treatment Health Maintenance Due Date [...] 05/01/2021, 07/24/2020, 07/03/2020 Influenza Vaccine (#1) 2025 4, 03/03/2023, 03/30/2022, Additional history exists Hypertension/CHF/CAD Annual [...] on patient's age to complete this topic Insurance MEDICARE [facility] Care Teams Sales Driver Relationship Specialty Start Date End Date Hu Peterson PA [address] [place] [phone] PCP - General Internal Medicine 01/08/25
--- OUTSIDE RECORDS SUMMARY | 2025-05-21 16:20 | XMS_ITS | Patient Health Record ---
Author Organization [facility] Address [address] [place], [place] [phone] Care Team Providers Care Race And Sports Book Writer Name Role Phone Lani Waddell Unavailable [phone] Allergies No Known Allergies Reason For Referral [...] W/U Status Risk Notes Problem Gouty arthritis (11345922) Gouty arthritis (M10.9) Active confirmed Vital Signs [...] Date Provider Diagnosis [facility] [address] [place], [place] [phone] 08/10/2024 Lani Waddell Gouty arthritis M10.9 and [...] your doctor if you can take an tnjk-bro-eftxcor medicine. Eat less seafood and red meat. [...] Date Coverage End Date Medicare [address] [address] [place] [address] [id number] OCTOBER DIAN Self - patient is the insured [facility] Commercial [address] [place] [address] [id number] CHELA DIAN Self - patient is the insured Medical (General) History Medical History History ICD Code Gout
== END 2025-05-21 13:17 | disposition home or self-care (01) ==
LOC: HO.RHES 12:32
PROVIDERS: PCP Physician Assistant Medical; Visit Provider Internal Medicine Rheumatology
DX: M19.90 Unspecified osteoarthritis, unspecified site (principal); M1A.0790 Idiopathic chronic gout, unspecified ankle and foot, without tophus (tophi); E79.0 Hyperuricemia without signs of inflammatory arthritis and tophaceous disease
CPT/HCPCS: 99214; G2211